=== PATIENT | female | born 1960 | race Caucasian/White ===

== ENCOUNTER → 2018-09-23 12:12 | Outpatient (CLI) | payer OTHER, SELFPAY ==
--- NOTE | 2018-09-23 | DI.MG.S_ITS ---
BILATERAL DIGITAL SCREENING MAMMOGRAM 3D/2D WITH CAD: 09/23/2018 CLINICAL: Routine screening. Family history of breast cancer. Comparison is made to exam dated: 07/04/2011 [facility]. The tissue of both breasts is heterogeneously dense. This may lower the sensitivity of mammography. Current study was also evaluated with a Computer Aided Detection (CAD) system. No significant masses, calcifications, or other findings are seen in either breast. There has been no significant interval change. IMPRESSION: NEGATIVE There is no mammographic evidence of malignancy. A 1 year screening mammogram is recommended. This exam was interpreted at Station ID: [id number]. NOTE: For mammograms, a report in lay terms will be sent to the patient. Approximately 15% of breast malignancies will not be visualized mammographically. In the management of a palpable breast mass, a negative mammogram must not discourage biopsy of a clinically suspicious lesion. Electronically Signed By: Gian johnson/jael:09/23/2018 16:31:28 letter sent: Normal Exam ACR BI-RADS Category 1: Negative 3341F
== END ==
PROVIDERS: PCP Student in an Organized Health Care Education/Training Program; Visit Provider Student in an Organized Health Care Education/Training Program
DX: Z12.31 Encounter for screening mammogram for malignant neoplasm of breast (principal); Z80.3 Family history of malignant neoplasm of breast
CPT/HCPCS: 77063; 77067

== ENCOUNTER 2018-10-11 13:25 | Day surgery (SDC) | payer OTHER, SELFPAY ==
--- NOTE | 2018-10-11 | PATH_ITS ---
[facility] Accession Number: [id number] . 01 Material submitted: . rectum - RECTAL POLYP AT 15CM . 02 Diagnosis: Rectum at 15 cm, Polyp: Inflammatory polyp. [facility]/10/14/2018 . 02 Electronically signed: . Nacho Vásquez MD, PhD, Pathologist NPI- [id number] . 01 Gross description: . RECTAL POLYP AT 15CM: Received in formalin are 3 fragment(s) of boo, soft tissue measuring 0.2 x 0.2 x 0.2 cm to 0.4 x 0.3 x 0.3 cm which is entirely submitted and submitted entirely in 1 cassette(s) /DMC /DMC . 02 Pathologist provided ICD-10: K51.40 . 02 CPT . 734389 Performed at: 01 [facility] [address] [address], [place], [place] [id number] MD Gian White MD Phone: [phone] Performed at: 02 [facility] [address] [place], [place] [id number] MD Smiley Eric MD Phone: [phone]
[2018-10-11 14:04] VITALS: BMI 36.1
[2018-10-11 14:09] VITALS: BP 150/94; PULSE 88; RESP 18; TEMP 36.8; O2SAT 94
[2018-10-11] MEDS: SODIUM CHLORIDE 0.9% 1,000 ML 200 ML IV (14:14)
--- NOTE | 2018-10-11 15:31 | PM.HP.1 ---
History of Present Illness Date Patient Seen: 10/11/18 Time Patient Seen: 15:31 Chief complaint: [id number] Narrative: Patient is here for screening colonoscopy asymptomatic this is her 1st colonoscopy Patient History Social History household members: spouse Family & Social History Social History: household members spouse Meds Allergies Allergy/AdvReac Type Severity Reaction Status Date / Time No Known Allergies Allergy Uncoded 07/25/17 11:59 Review of Systems Review of Systems All systems reviewed & are unremarkable except as noted in HPI and below Exam Vital Signs (past 8 hours): - 10/11/18 14:09 Temperature 98.3 F Pulse Rate 88 Respiratory Rate 18 Blood Pressure 150/94 H Pulse Oximetry 94 Oxygen Delivery Method Room Air Narrative Exam Narrative: Patient is alert and oriented Lungs are clear with no rales or wheezes Heart regular rhythm no murmur Abdomen soft and nontender no masses Rectal be done at time of colonoscopy Assessment & Plan Assessment & Plan narrative: Asymptomatic patient is here for a screening colonoscopy. I explained the risks of bleeding and perforation particularly if there are polyps removed. Patient understands and agrees with no further questions.
[2018-10-11] MEDS: fentaNYL 250 MCG/5 ML INJ IV (15:48)
[2018-10-11] MEDS: MIDAZOLAM 5 MG/5 ML VIAL IV (15:48)
[2018-10-11 16:06] VITALS: BP 133/66; PULSE 89; RESP 16; TEMP 36.9; O2SAT 95
--- NOTE | 2018-10-11 16:08 | PM.OP.ENDO ---
Operative Date/Time/Diagnoses Date of procedure: 10/11/18 Time of procedure: 16:09 Pre-op diagnosis: Screening colonoscopy Post-op diagnosis: other (5 mm hyperplastic polyp in the rectum at 15 cm removed and submitted) Procedure & Clinicians Study performed: Total colonoscopy and polypectomy Same procedure as scheduled: Yes Indications: Screening Surgeon: Johann Gracia Procedure Notes SCOAP/Timeout: Was done Procedure in detail: The patient was properly identified during surgical pause given a total of 8 mg of Versed and 250 micro g of fentanyl throughout the procedure which was well-tolerated. The flexible fiberoptic colonoscope inserted transanally to the cecum. At 15 cm in the upper rectum there was a small hyperplastic polyp approximately 5 mm in diameter that I removed with the cold forceps and submitted. The remaining colon was normal. The procedure was well tolerated. Scope withdrawal time: 15 Sedation minutes: 30 Findings: polyp Specimen(s): other (Rectal polyp from 15 cm) Complications: none Impression: Probable hyperplastic polyp in the rectum. Recommendations: Colonscopy in 5 years Disposition: PACU
[2018-10-11 16:11] VITALS: BP 137/67; PULSE 90; RESP 14; O2SAT 96
[2018-10-11 16:15] VITALS: BP 130/86; PULSE 93; RESP 16; TEMP 37.2; O2SAT 96
[2018-10-11 16:30] VITALS: BP 107/70; PULSE 73; RESP 18; TEMP 36.7; O2SAT 96
== END 2018-10-11 16:40 | disposition home or self-care (01) ==
PROVIDERS: PCP Student in an Organized Health Care Education/Training Program; Visit Provider Surgery
PROC: 0DJD8ZZ Inspection of Lower Intestinal Tract, Via Natural or Artificial Opening Endoscopic (ICD-10-PCS; CPT 45378; principal; 2018-10-11 15:45)
DX: Z12.11 Encounter for screening for malignant neoplasm of colon (principal); K62.1 Rectal polyp
CPT/HCPCS: 45380; 99152; 99153; J2250; J3010

== ENCOUNTER 2021-03-11 15:06 | Emergency (ER) | payer OTHER, SELFPAY ==
[2021-03-11] VITALS (15 sets, daily range): BP systolic 146–181; BP diastolic 75–96; PULSE 62–102; RESP 12–28; TEMP 36.8; O2SAT 97–100; BMI 34.8
--- NOTE | 2021-03-11 15:28 | DI.RAD.S_ITS ---
PROCEDURE: XR CHEST 1V INDICATIONS: chest pain TECHNIQUE: One view of the chest was acquired. COMPARISON: January 15, 2012. FINDINGS: Surgical changes and devices: None. Lungs and pleura: Lungs are clear. No pleural effusions or pneumothorax. Mediastinum: Mediastinal contours appear normal. Heart size is normal. Bones and chest wall: No suspicious bony lesions. Overlying soft tissues appear unremarkable. IMPRESSION: No acute cardiopulmonary abnormality. Dictated by: Diaz Schmidt M.D. on 03/11/2021 at 15:46 Approved by: Diaz Schmidt M.D. on 03/11/2021 at 15:47
[2021-03-11 15:46] LABS: Add Manual Diff / Slide Review NO; Basophils Absolute Auto 200 /uL (0-100); Basophils Percent Auto 1.6 % (0-2); Eosinophils Absolute Auto 200 /uL (0-450); Eosinophils Percent Auto 2.1 % (2-4); Hematocrit 43.2 % (36-46); Hemoglobin 14.7 g/dL (12.0-16.0); Lymphocytes Absolute Auto 2800 /uL (1100-4500); Lymphocytes Percent Auto 24.8 % (25-40); Mean Corpuscular HGB Conc 34.1 % (30-36); Mean Corpuscular Hemoglobin 31.4 PG (26-34); Mean Corpuscular Volume 91.9 fL (80-100); Monocytes Absolute Auto 1000 /uL (0-900); Monocytes Percent Auto 8.6 % (3-14); Neutrophils Absolute Auto 7000 /uL (1500-7000); Neutrophils Percent Auto 62.9 % (50-75); Platelet Count 441 X10^3/uL (150-400); Red Cell Distribution Width 13.8 % (11.6-14.8); White Blood Cell Count 11.1 X10^3/uL (4.5-11.0)
[2021-03-11 16:01] LABS: Alanine Aminotransferase 40 IU/L (<35); Albumin 4.6 g/dL (3.5-5.0); Albumin Globulin Ratio 1.2 (1.0-2.8); Alkaline Phosphatase 83 U/L (38-126); Aspartate Aminotransferase 47 IU/L (14-36); BUN Creatinine Ratio 16.3 (6-22); Bilirubin Total 0.6 mg/dL (0.2-1.3); Blood Urea Nitrogen 14 mg/dL (7-17); Calcium 9.3 mg/dL (8.4-10.2); Carbon Dioxide 26 mmol/L (22-32); Chloride 101 mmol/L (98-107); Creatine Kinase 63 U/L (30-135); Estimated Glomerular Filt Rate > 60.0 mL/min (>60); Globulin 3.8 g/dL (1.7-4.1); Glucose 145 mg/dL (80-110); HEMOLYSIS < 15 (0-50); Lipase 155 U/L (23-300); Potassium 3.9 mmol/L (3.4-5.1); Sodium 138 mmol/L (137-145); Total Protein 8.4 g/dL (6.3-8.2)
[2021-03-11 16:12] LABS: Troponin I < 0.012 ng/mL (0.01-0.034)
--- NOTE | 2021-03-11 16:22 | ED_ITS ---
HPI - Chest Pain <Colten Avila PA-C - Last Filed: 03/11/21 19:31> General Chief Complaint: Chest Pain Stated Complaint: chest issues Time Seen by Provider: 03/11/21 15:34 Source: patient Mode of arrival: Ambulatory Limitations: no limitations History of Present Illness HPI narrative: Patient is a 61-year-old female presenting to the emergency department today for evaluation of chest pain that began 3 days ago. Patient states that she began to feel sudden onset tightness in her sternum that she notes has been intermittent since it began. Patient notes that she does have pain-free intervals. Of note, patient states that her pain has not worsened since began. Patient denies fever, chills, shortness of breath, cough, abdominal pain, nausea, vomiting, diarrhea, dysuria, diaphoresis, back pain, tearing or ripping pain. Patient states that aspirin administration at home seems to alleviate pain briefly. No other concerns voiced at this time. Related Data Allergies Allergy/AdvReac Type Severity Reaction Status Date / Time No Known Drug Allergies Allergy Verified 03/11/21 15:16 Review of Systems <Colten Avila PA-C - Last Filed: 03/11/21 19:31> Constitutional Constitutional: Denies chills, Denies fatigue, Denies fever(s), Denies frequent falls, Denies lethargy and Denies weakness Eyes Eyes: Denies change in vision, Denies eye discharge, Denies irritation and Denies loss of vision ENT Ears, Nose, Mouth, and Throat: Denies dizziness, Denies neck pain and Denies throat swelling Cardiovascular Cardiovascular: Reports chest pain (Midsternal), Denies irregular heart rhythm, Denies lightheadedness, Denies palpitations, Denies dyspnea, Denies dyspnea on exertion and Denies orthopnea Respiratory Respiratory: Denies cough, Denies dyspnea, Denies dyspnea on exertion and Denies wheezing Gastrointestinal Gastrointestinal: Denies abdominal pain, Denies change in bowel habits, Denies diarrhea, Denies nausea and Denies vomiting Genitourinary Genitourinary: Denies hematuria, Denies flank pain, Denies urinary incontinence and Denies urinary urgency Musculoskeletal Musculoskeletal: Denies back pain, Denies muscle weakness, Denies neck pain, Denies numbness and Denies tingling Neurologic Neurologic: Denies behavioral changes, Denies confusion, Denies dizziness, Denies frequent falls, Denies loss of vision, Denies numbness, Denies tingling and Denies weakness Psychiatric Psychiatric: Denies behavioral changes and Denies confusion Endocrine Endocrine: Denies fatigue and Denies palpitations Allergic/Immunologic Allergic/Immunologic: Denies urticaria, Denies throat swelling and Denies wheezing Patient History <Colten Avila PA-C - Last Filed: 03/11/21 19:31> Social History household members: spouse Smoking Status: Never smoker Smoking Status: Never smoker alcohol intake frequency: 3 or more drinks per day Substance Use Type: marijuana Exam <Colten Avila PA-C - Last Filed: 03/11/21 19:31> Narrative Exam Narrative: GENERAL: 61 year old patient appears stated age. Well-developed patient, in no acute distress. HEAD: Atraumatic. Normocephalic. EYES: Pupils equal round and reactive. Extraocular motions intact. No scleral icterus. No injection or drainage. ENT: Nose without bleeding, purulent drainage. Throat without erythema, tonsillar hypertrophy or exudate. Airway patent. NECK: Trachea midline. Non tender CARDIOVASCULAR: Regular rate and rhythm without murmurs, gallops, or rubs. RESPIRATORY: Clear to auscultation. Breath sounds equal bilaterally. No wheezes, rales, or rhonchi. GASTROINTESTINAL: Abdomen soft, non-tender, nondistended. EXTREMITIES: No edema or joint tenderness. BACK: Nontender without deformity or crepitance. No flank tenderness. NEURO: AOx3. SKIN: No rash or erythema of visible areas Initial Vital Signs Initial Vital Signs: Vital Signs Pulse Rate 98 H 03/11/21 15:13 Pulse Oximetry 98 03/11/21 15:13 <Kiran Kolb DO - Last Filed: 03/12/21 07:13> Initial Vital Signs Initial Vital Signs: Vital Signs Pulse Rate 98 H 03/11/21 15:13 Pulse Oximetry 98 03/11/21 15:13 Course <Colten Avila PA-C - Last Filed: 03/11/21 19:31> Course Course Narrative: CBC, CMP, lipase, troponin, creatine kinase, chest x-ray, EKG ordered. Repeat troponin ordered 2 hours after initial. Orders Ordered: ED Orders 03/11/21 15:28 XR chest 1V Stat EKG-12 Lead Stat 03/11/21 15:35 Complete Blood Count AUTO DIFF Stat Comprehensive Metabolic Panel Stat Lipase Stat Troponin & CK Cardiac Panel Stat 03/11/21 17:31 Troponin & CK Cardiac Panel Stat Vital Signs Vital signs: Vital Signs - 8 hr 03/11/21 15:13 03/11/21 15:14 03/11/21 15:16 Temperature 98.2 F Pulse Rate 98 H 102 H 98 H Respiratory Rate 18 Blood Pressure 181/96 H 181/96 H Pulse Oximetry 98 99 98 03/11/21 15:30 03/11/21 15:36 03/11/21 15:45 Temperature Pulse Rate 84 86 71 Respiratory Rate 19 12 20 Blood Pressure 159/85 H 167/81 H Pulse Oximetry 100 98 98 03/11/21 16:00 03/11/21 16:16 03/11/21 16:30 Temperature Pulse Rate 72 74 67 Respiratory Rate 14 28 H 18 Blood Pressure 151/75 H 170/89 H 167/87 H Pulse Oximetry 97 97 98 03/11/21 16:45 03/11/21 17:00 03/11/21 17:30 Temperature Pulse Rate 68 68 66 Respiratory Rate 19 16 Blood Pressure 152/91 H Pulse Oximetry 97 97 97 03/11/21 17:57 03/11/21 18:00 03/11/21 18:30 Temperature Pulse Rate 64 64 62 Respiratory Rate 24 24 18 Blood Pressure 149/90 H 146/87 H 146/83 H Pulse Oximetry 98 97 97 <Kiran Kolb, DO - Last Filed: 03/12/21 07:13> Orders Ordered: ED Orders 03/11/21 15:28 XR chest 1V Stat EKG-12 Lead Stat 03/11/21 15:35 Complete Blood Count AUTO DIFF Stat Comprehensive Metabolic Panel Stat Lipase Stat Troponin & CK Cardiac Panel Stat 03/11/21 17:31 Troponin & CK Cardiac Panel Stat Vital Signs Vital signs: Vital Signs - 8 hr 03/11/21 15:13 03/11/21 15:14 03/11/21 15:16 Temperature 98.2 F Pulse Rate 98 H 102 H 98 H Respiratory Rate 18 Blood Pressure 181/96 H 181/96 H Pulse Oximetry 98 99 98 03/11/21 15:30 03/11/21 15:36 03/11/21 15:45 Temperature Pulse Rate 84 86 71 Respiratory Rate 19 12 20 Blood Pressure 159/85 H 167/81 H Pulse Oximetry 100 98 98 03/11/21 16:00 03/11/21 16:16 03/11/21 16:30 Temperature Pulse Rate 72 74 67 Respiratory Rate 14 28 H 18 Blood Pressure 151/75 H 170/89 H 167/87 H Pulse Oximetry 97 97 98 03/11/21 16:45 03/11/21 17:00 03/11/21 17:30 Temperature Pulse Rate 68 68 66 Respiratory Rate 19 16 Blood Pressure 152/91 H Pulse Oximetry 97 97 97 03/11/21 17:57 03/11/21 18:00 03/11/21 18:30 Temperature Pulse Rate 64 64 62 Respiratory Rate 24 24 18 Blood Pressure 149/90 H 146/87 H 146/83 H Pulse Oximetry 98 97 97 MDM - Chest Pain <Colten Avila PA-C - Last Filed: 03/11/21 19:31> Lab Data Result diagrams: 03/11/21 15:35 03/11/21 15:35 Labs: Lab Results 03/11/21 03/11/21 03/11/21 Range/Units 15:35 15:35 17:31 WBC 11.1 H (4.5-11.0) X10^3/uL RBC 4.70 (4.0-5.2) X10^6/uL Hgb 14.7 (12.0-16.0) g/dL Hct 43.2 (36-46) % MCV 91.9 (80-100) fL MCH 31.4 (26-34) PG MCHC 34.1 (30-36) % RDW 13.8 (11.6-14.8) % Plt Count 441 H (150-400) X10^3/uL Neut % (Auto) 62.9 (50-75) % Lymph % (Auto) 24.8 L (25-40) % Republic % (Auto) 8.6 (3-14) % Eos % (Auto) 2.1 (2-4) % Baso % (Auto) 1.6 (0-2) % Neut # (Auto) 7000 (2805-5277) /uL Lymph # (Auto) 2800 (6002-5375) /uL Republic # (Auto) 1000 H (0-900) /uL Eos # (Auto) 200 (0-450) /uL Baso # (Auto) 200 H (0-100) /uL Sodium 138 (137-145) mmol/L Potassium 3.9 (3.4-5.1) mmol/L Chloride 101 (98-107) mmol/L Carbon Dioxide 26 (22-32) mmol/L BUN 14 (7-17) mg/dL Creatinine 0.86 (0.52-1.04) mg/dL Estimated GFR > 60.0 (>60) mL/min BUN/Creatinine Ratio 16.3 (6-22) Glucose 145 H (80-110) mg/dL Calcium 9.3 (8.4-10.2) mg/dL Total Bilirubin 0.6 (0.2-1.3) mg/dL AST 47 H (14-36) IU/L ALT 40 H (<35) IU/L Alkaline Phosphatase 83 (38-126) U/L Total Creatine Kinase 63 63 (30-135) U/L CK-MB (CK-2) TNP TNP CK-MB (CK-2) Rel Index TNP TNP Troponin I < 0.012 < 0.012 (0.01-0.034) ng/mL Total Protein 8.4 H (6.3-8.2) g/dL Albumin 4.6 (3.5-5.0) g/dL Globulin 3.8 (1.7-4.1) g/dL Albumin/Globulin Ratio 1.2 (1.0-2.8) Lipase 155 (23-300) U/L Imaging Data Chest x-ray: Radiologist's Impression: PROCEDURE:? XR CHEST 1V ? INDICATIONS:? chest pain ? TECHNIQUE:? One view of the chest was acquired.? ? COMPARISON:? January 15, 2012. ? FINDINGS:? ? Surgical changes and devices:? None.? ? Lungs and pleura:? Lungs are clear.? No pleural effusions or pneumothorax.? ? Mediastinum:? Mediastinal contours appear normal.? Heart size is normal.? ? Bones and chest wall:? No suspicious bony lesions.? Overlying soft tissues appear unremarkable.? ? IMPRESSION:? No acute cardiopulmonary abnormality. ? ? Dictated by: Diaz Schmidt M.D. on 03/11/2021 at 15:46 ? ? Approved by: Diaz Schmidt M.D. on 03/11/2021 at 15:47 ? ECG Data Interpretation: Ventricular rate of 80 beats per minute, LA interval of 162 ms, normal sinus rhythm. MDM Narrative Medical decision making narrative: Patient is a 61-year-old female presenting to the emergency department today for evaluation of chest pain that began 3 days ago. To consider myocardial infarction versus ACS versus aortic dissection versus pneumonia versus costochondritis versus musculoskeletal chest pain. Overall physical examination, history, and vitals are reassuring. Patient is able to point to 1 specific location where the pain is located. Additionally, patient states that she has not experienced any additional concerning symptoms including diaphoresis, arm pain, nausea, vomiting. Patient also states that she cannot think of anything that exacerbates or alleviates the pain and she notes that the pain has been intermittent for multiple days. Discussed results of lab work and imaging with patient. At this time she feels comfortable being discharged home. Strict return precautions discussed with patient prior to discharge. <Kiran Kolb, DO - Last Filed: 03/12/21 07:13> Lab Data Labs: Lab Results 03/11/21 03/11/21 03/11/21 Range/Units 15:35 15:35 17:31 WBC 11.1 H (4.5-11.0) X10^3/uL RBC 4.70 (4.0-5.2) X10^6/uL Hgb 14.7 (12.0-16.0) g/dL Hct 43.2 (36-46) % MCV 91.9 (80-100) fL MCH 31.4 (26-34) PG MCHC 34.1 (30-36) % RDW 13.8 (11.6-14.8) % Plt Count 441 H (150-400) X10^3/uL Neut % (Auto) 62.9 (50-75) % Lymph % (Auto) 24.8 L (25-40) % Republic % (Auto) 8.6 (3-14) % Eos % (Auto) 2.1 (2-4) % Baso % (Auto) 1.6 (0-2) % Neut # (Auto) 7000 (7266-7533) /uL Lymph # (Auto) 2800 (0914-1182) /uL Republic # (Auto) 1000 H (0-900) /uL Eos # (Auto) 200 (0-450) /uL Baso # (Auto) 200 H (0-100) /uL Sodium 138 (137-145) mmol/L Potassium 3.9 (3.4-5.1) mmol/L Chloride 101 (98-107) mmol/L Carbon Dioxide 26 (22-32) mmol/L BUN 14 (7-17) mg/dL Creatinine 0.86 (0.52-1.04) mg/dL Estimated GFR > 60.0 (>60) mL/min BUN/Creatinine Ratio 16.3 (6-22) Glucose 145 H (80-110) mg/dL Calcium 9.3 (8.4-10.2) mg/dL Total Bilirubin 0.6 (0.2-1.3) mg/dL AST 47 H (14-36) IU/L ALT 40 H (<35) IU/L Alkaline Phosphatase 83 (38-126) U/L Total Creatine Kinase 63 63 (30-135) U/L CK-MB (CK-2) TNP TNP CK-MB (CK-2) Rel Index TNP TNP Troponin I < 0.012 < 0.012 (0.01-0.034) ng/mL Total Protein 8.4 H (6.3-8.2) g/dL Albumin 4.6 (3.5-5.0) g/dL Globulin 3.8 (1.7-4.1) g/dL Albumin/Globulin Ratio 1.2 (1.0-2.8) Lipase 155 (23-300) U/L Discharge Plan Departure Patient Disposition: Home Clinical Impression: Chest pain Instructions: DI for Chest Pain Activity Restrictions/Additional Instructions: *You have been diagnosed with chest pain *What to do: *Please continue to take your regular medications as directed. [ ] New medication prescriptions sent to your pharmacy: [ ] [ ] New medication written as a paper prescription [X] No new medications given *Please follow up with your primary care provider in 2-3 days, call for an appointment. Let them know you were seen in the Emergency Department and that we ask that you be seen in follow up. We will electronically transmit a record of today's note if your PCP is in our system *If you do not have a primary care provider please contact the [facility] Resource line at [phone]. They will ask some questions about your medical history and help get you set up with a doctor in the community. *Return to Emergency Department if you should have any new, worsening or concerning symptoms, such as fever greater than 101 F, shaking chills, worsening chest pain, persistent sweating, persistent vomiting or other bothersome symptoms. Referrals: Angelita Bishop PA-C [Primary Care Provider] - <Kiran Kolb DO - Last Filed: 03/12/21 07:13> Cosign ED Attending Cosignature Attestation: Dr Kolb Co-Sign Statement: I was available for consultation during this patient's emergency department visit. This chart is signed by myself for administrative purposes only. I did not have direct contact with this patient during this visit. They were seen independently by the APC.
[2021-03-11 18:11] LABS: Creatine Kinase 63 U/L (30-135)
[2021-03-11 18:23] LABS: Troponin I < 0.012 ng/mL (0.01-0.034)
== END 2021-03-11 18:48 | disposition home or self-care (01) ==
PROVIDERS: Emergency Medicine; Emergency Provider Physician Assistant; PCP Student in an Organized Health Care Education/Training Program
DX: R07.9 Chest pain, unspecified (principal)
CPT/HCPCS: 36415; 71045; 80053; 82550; 83690; 84484; 85025; 93005; 99284